=== PATIENT | female | born 1965 | race Caucasian/White ===

== ENCOUNTER 2016-11-25 23:06 | Emergency (ER) | payer OTHER ==
[~2016-11-25] VITALS: Ht 177.8 cm; Wt 63.6 kg
[2016-11-25 23:10] VITALS: BP 136/83; PULSE 95; RESP 18; O2SAT 99
[2016-11-26] MEDS ORDERED: 0.9% Sodium Chloride 1,000 ML IV ONE (00:08)
[2016-11-26] MEDS ORDERED: Ondansetron 2 mg/mL 2 mL Inj IVPUSH ONE (00:10)
--- NOTE | 2016-11-26 00:33 | ED.REPORT ---
HPI-Abd Pain F 40 and Over Date of Service Nov 26, 2016 ED Provider: Paul Cantor MD Patient is a 51 year old female who presents to the ED with left sided low back pain that began this afternoon. The patient works for [employer] and believed that her symptoms were initially due to muscle strain. However when she returned home from work she developed chills and a fever (102F prior to arrival). Patient reports radiation of her pain to her lower abdomen. She reports associated nausea and vomiting. Patient reports dysuria 1.5 weeks ago, treated with OTC medication and resolved. The patient also reports having flu-like symptoms and she did not have her seasonal influenza vaccination this year. Patient states that she has had a cough for several weeks, but she is also a daily cigarette smoker. Nursing Notes Stated Complaint: LOW BACK AND GROIN PAIN, FEVER Chief Complaint: General Complaint Nursing Notes Reviewed: Yes Allergies: Coded Allergies: tetanus and diphtheria toxoids (Verified Allergy, Unknown, 12/07/14) Scheduled Cefuroxime Axetil (Cefuroxime) 500 Mg Tablet 500 MG PO BID General Time Seen by MD: 23:45 Chief Complaint Flank pain right, Flank pain left Hx Obtained From: Patient Arrived By: Walk-in Sudden in Onset?: No Onset Occurred: 3 days ago Symptom Duration: Since onset Progression since Onset: Gradually worsening Location: : Flank left: Flank right Quality: Painful Severity: Current: Moderate Severity: Maximum: Moderate Recent Healthcare: No recent doctor visit, No recent hospitalization Similar Sx Previous: No Past Medical History Past Medical History Reports: Depression Past Surgical History ectopic Smoking History Current Every Day Smoker Social History Alcohol Use: 1-3 per week Other Social History: Good social support, Local resident Ambulatory Status Independent Review of Systems Constitutional: Reports: Fever Respiratory: Reports: Non-productive cough GI: Reports: Abdominal pain, Nausea, Vomiting Female: Reports: Dysuria (now resolved), Flank pain Complete sys rev & neg: except as marked. Physical Exam Vital Signs Vital Signs (First) Date Time Temp Pulse Resp B/P Pulse Ox O2 Delivery O2 Flow Rate FiO2 11/25/16 23:10 39.3 95 18 136/83 99 Room Air Initial VS: Reviewed Head / Eyes: Atraumatic, Normocephalic, PERRL ENT: Conjunctiva normal, No scleral icterus Neck: Supple, Full range of motion Skin: Warm, Dry, No cyanosis Neurologic: Alert, Oriented, Nonfocal Psychiatric: Mood/affect normal, Behavior normal, Normal thought content General/Constitutional: Awake, Alert, No acute distress Respiratory / Chest: Breath sounds = bilat, No respiratory distress, No rales, No wheezing rhonchorous cough Cardiovascular: Heart rate NL, Regular rhythm, No murmurs Abdomen: Soft, Non-tender, No guarding, No rebound Back: No CVA tenderness tender focal area of the left SI joint Upper Extremity / MS: No swelling, No edema Lower Extremity / Pelvis / MS: No swelling, No edema Interpretation & Diagnostics Interpretation & Diagnostics: NEGATIVE FOR INFLUENZA TYPE A AND B Lab Results Interpretation Result Diagram: 11/26/16 0036 11/26/16 0036 Test 11/26/16 00:36 White Blood Count 7.8th/mm3 (3.8-10.1) Red Blood Count 3.80mil/mm3 (3.90-5.20) Hemoglobin 12.6g/dL (12.0-15.6) Hematocrit 37.8% (35.0-46.0) Mean Corpuscular Volume 99.5fL (81-100) Mean Corpuscular Hemoglobin 33.2pg (27.0-35.0) Mean Corpuscular Hemoglobin Concent 33.3% (32.0-37.0) Red Cell Distribution Width 12.6% (12.3-15.4) Platelet Count 203bil/L (150-400) Neutrophils (%) (Auto) 78.3% (40-74) Lymphocytes (%) (Auto) 10.2% (14-46) Monocytes (%) (Auto) 8.7% (4-12) Eosinophils (%) (Auto) 2.2% (0-5) Basophils (%) (Auto) 0.5% (0-3) Prothrombin Time 9.8sec (8.1-12.5) Prothromb Time International Ratio 0.92ratio Urine Color Yellow (YELLOW) Urine Appearance Hazy (CLEAR,HAZY) Urine pH 6.5 (5.0-8.0) Urine Specific [place] 1.015 (1.003-1.035) Urine Protein Negativemg/dL (NEG,TRACE) Urine Glucose (UA) Negativemg/dL (NEGATIVE) Urine Ketones Tracemg/dL (NEGATIVE) Urine Occult Blood Negative (NEGATIVE) Urine Nitrite Negative (NEGATIVE) Urine Bilirubin Negative (NEGATIVE) Urine Urobilinogen Normalmg/dL (NORMAL) Urine Leukocyte Esterase Small (NEGATIVE) Urine RBC 0-2/hpf (0-2) Urine WBC 6-10/hpf (0-5) Urine Epithelial Cells Many/hpf (NONE-MOD) Urine Crystals None seen (NONE SEEN) Urine Bacteria None/hpf (NONE-FEW) Urine Hyaline Casts None/lpf (NONE) Urine Granular Casts None seen (NONE SEEN) Urine Waxy Casts None seen (NONE SEEN) Urine Red Blood Cell Casts None seen (NONE SEEN) Urine White Blood Cell Casts None seen (NONE SEEN) Urine Mucus None seen (None Seen) Urine Trichomonas None seen (NONE SEEN) Urine Yeast None (NONE SEEN) Urine Culture Reflexed Indicated Sodium Level 137mEq/L (134-144) Potassium Level 4.0mEq/L (3.5-5.2) Chloride Level 97mEq/L (97-108) Carbon Dioxide Level 24mmol/L (18-29) Blood Urea Nitrogen 9mg/dL (6-24) Creatinine 0.54mg/dL (0.57-1.00) Estimat Glomerular Filtration Rate 170mL/min (>59) Glucose Level 95mg/dL (60-99) Lactic Acid Level 0.6mmol/L (0.4-2.0) Calcium Level 9.3mg/dL (8.5-10.1) Magnesium Level 1.8mg/dL (1.6-2.6) Total Bilirubin 0.4mg/dL (0.0-1.2) Aspartate Amino Transf (AST/SGOT) 21U/L (0-50) Alanine Aminotransferase (ALT/SGPT) 18U/L (0-32) Alkaline Phosphatase 62U/L (25-150) Total Protein 7.2g/dL (6.4-8.4) Albumin 4.2g/dL (3.4-5.0) Lipase 21U/L (13-60) X-Ray Chest Interpretation Chest Xray Interpretation: Impression: No acute process. View: AP & lat Interpretation / Wet Read by: Wet read ED physician Re-Eval/Medical Decision Med Decision/Clinical Course 51-year-old with focal back pain but also with febrile illness. Mild findings of UTI. Be treated empirically as UTI with Ceftin. Follow up with PCP. Prompt return if worse. Source of Hx: Old records Re-Evaluation/Progress #1: Time of Eval: 01:51 Patient Status: Condition improved Re-Evaluation/Progress Note: Rechecked the patient to discuss the results of her labs. Her urine is suspicious for a UTI, but no definitive. Due to her symptoms, will order a chest x-ray as well. Re-Evaluation/Progress #2: Time of Eval: 02:39 Patient Status: Condition improved Re-Evaluation/Progress Note: X-ray was negative. She will be treated for her UTI. Patient understands and agrees with the plan to be discharged home. Discharge instructions and follow-up discussed. All questions were addressed. Return to the ED warnings given. Counseled Regarding: Diagnosis, Lab results, Need for follow-up, When/why to return to ED Discharge & Departure Primary Impression: UTI (urinary tract infection) Urinary tract infection type: acute cystitis Hematuria presence: without hematuria Qualified Code: N30.00 - Acute cystitis without hematuria Additional Impression: Fever Fever type: unspecified Qualified Code: R50.9 - Fever, unspecified Disposition: Home Discharge Condition All VS Reviewed: Yes Condition: Stable Patient Instructions: Urinary Tract Infection in Women (ED) Additional Instructions: The only apparent source of the fever is urinary tract infection. Begin Ceftin twice daily for seven days. Follow-up with your doctor in the office. Return if any immediate issues, particularly if you are worse despite treatment. Drink plenty of fluids and stay well-hydrated. Tylenol or Motrin for fever as needed. Referrals: Amrik Black MD (PCP) Scribe Attestation Portions of this note were transcribed by Felisha Sanches. I, Dr. Cantor personally performed the history, physical exam and medical decision-making; I reviewed and confirmed the accuracy of the information in the transcribed note. Signed by: Dell Nelson, 11/26/2016 0247 copies to: Amrik Black MD, Christopher W MD Nov 26, 2016 00:33 Felisha Sanches Nov 26, 2016 00:51
[2016-11-26 01:19] LABS: BASOPHILS % (AUTO) 0.5 % (0-3); EOSINOPHILS % (AUTO) 2.2 % (0-5); MONOCYTES % (AUTO) 8.7 % (4-12); Mean Corpuscular Hemoglobin 33.2 pg (27.0-35.0); Mean Corpuscular Volume 99.5 fL (81-100); NEUTROPHILS % (AUTO) 78.3 % (40-74); Platelet Count 203 bil/L (150-400)
[2016-11-26 01:28] LABS: APPEARANCE,URINE HAZY (CLEAR,HAZY); COLOR,URINE YELLOW (YELLOW); OCCULT BLOOD,URINE NEGATIVE (NEGATIVE); PH,URINE 6.5 (5.0-8.0); UROBILINOGEN,URINE NORMAL (NORMAL)
[2016-11-26 01:29] LABS: INR 0.92 ratio
[2016-11-26 02:23] LABS: Magnesium 1.8 mg/dL (1.6-2.6)
[2016-11-26] MEDS ORDERED: CEFU500T61 PO (02:29)
[2016-11-26] MEDS ORDERED: cefTRIAXone Inj 1,000 MG in IV Premix 1 EACH IV ONE (02:30)
[2016-11-26] MEDS ORDERED: cefTRIAXone Inj 2,000 MG in IV Premix 1 EACH IV ONE ×2 (02:35)
[2016-11-26 03:42] VITALS: BP 136/83; PULSE 80; RESP 18; O2SAT 96
--- NOTE | 2016-11-26 10:11 | DRSVH ---
PROCEDURE: X-RAY CHEST, TWO VIEWS ([id number]) INDICATIONS: coough, fever TECHNIQUE: 2 views of the chest were acquired. COMPARISON: None. FINDINGS: Surgical changes and devices: None. Lungs and pleura: No pleural effusions or pneumothorax. Lungs are clear. Mediastinum: Mediastinal contours are normal. Heart size is normal. Bones and chest wall: No suspicious bony abnormalities. Soft tissues appear unremarkable. IMPRESSION: No acute cardiopulmonary disease. Dictated by: Lebron Villareal [facility] Interpreted: Niecy Rodriguez MD on 11/26/2016 at 10:11 Transcribed by: FABIEN on 11/26/2016 at 10:11 Approved by: Niecy Rodriguez MD, PhD on 11/26/2016 at 16:34
== END 2016-11-26 02:40 | disposition home or self-care (01) ==
LOC: SED 23:06
DX: N30.00 Acute cystitis without hematuria (principal); R50.9 Fever, unspecified; R11.2 Nausea with vomiting, unspecified; R05 Cough; F17.200 Nicotine dependence, unspecified, uncomplicated; Z88.8 Allergy status to other drugs, medicaments and biological substances
CPT/HCPCS: 36415; 71020; 80053; 81000; 83605; 83690; 83735; 85025; 85610; 87086; 87088; 87804; 96361; 96365; 96375; 99285; J0696; J2405; J7030